=== PATIENT | female | born 1995 | race Two or more races ===

== ENCOUNTER 2025-03-09 17:28 | Emergency (ER) | payer OTHER ==
[~2025-03-09] VITALS: Ht 157.5 cm; Wt 63.5 kg
[2025-03-09] MEDS ORDERED: MONODOX100 MG PO (20:08)
[2025-03-09] MEDS ORDERED: BACITRACIN-NEOMYCIN-POLYMYXIN 0.9 GM PACKET TOP ONE ×2 (20:15→20:18)
== END 2025-03-09 20:34 | disposition home or self-care (01) ==
LOC: ER 17:29
DX: S61.452A Open bite of left hand, initial encounter (principal); W55.01XA Bitten by cat, initial encounter; Y93.89 Activity, other specified; Y92.89 Other specified places as the place of occurrence of the external cause; Y99.9 Unspecified external cause status